=== PATIENT | female | born 1960 | race Caucasian/White ===

== ENCOUNTER 2018-02-20 11:29 | Observation (INO) | payer MEDICAID ==
[2018-02-20 12:44] LABS: ADD MAN DIFF? NO
[2018-02-20 12:48] LABS: BASOPHIL # 0.1 10^3/ul (0.0-0.1); BASOPHILS % 0.6 % (0.0-2.0); EOSINOPHILS # 0.4 10^3/ul (0.0-0.5); EOSINOPHILS % 3.5 % (0.0-7.0); HEMATOCRIT 41.4 % (37.0-47.0); HEMOGLOBIN 13.6 g/dl (12.0-16.0); LYMPHOCYTES # 3.2 10^3/ul (0.8-2.9); LYMPHOCYTES % 29.2 % (15.0-51.0); MEAN CORPUSCULAR HGB CONC 32.9 g/dl (32.0-37.0); MEAN CORPUSCULAR VOLUME 91.4 fl (82.0-101.0); MONOCYTE # 0.8 10^3/ul (0.3-0.9); MONOCYTES % 7.1 % (0.0-11.0); NEUTROPHIL # 6.5 10^3/ul (1.6-7.5); NEUTROPHILS % 59.3 % (39.0-77.0); PLATELET COUNT 322 10^3/UL (140-415); RED BLOOD COUNT 4.53 10^6/ul (4.20-5.40); RED CELL DISTRIBUTION WIDTH 13.1 % (11.5-14.5)
[2018-02-20] MEDS: ASPIRIN 81 MG TAB PO (12:53)
[2018-02-20] MEDS: NITROGLYCERIN 2% 1 GM OINT PKT TD (12:55)
[2018-02-20 13:09] LABS: ANION GAP 14 (8-16); BLOOD UREA NITROGEN 19 mg/dl (7-20); CALCIUM 9.4 mg/dl (8.4-10.2); CARBON DIOXIDE 25 mmol/L (21-31); CHLORIDE 108 mmol/L (97-110); CREATININE 0.54 mg/dl (0.44-1.00); GLUCOSE 124 mg/dl (70-220); POTASSIUM 4.1 mmol/L (3.5-5.1); SODIUM 143 mmol/L (135-144)
[2018-02-20 13:41] LABS: TROPONIN-I < 0.012 ng/ml (0.000-0.120)
[2018-02-20] MEDS: ACETAMINOPHEN 500 MG TAB PO (13:52)
[2018-02-20] MEDS ORDERED: ONDANSETRON 4 MG INJ IV (15:00)
[2018-02-20] MEDS ORDERED: ACETAMINOPHEN 325 MG TAB PO (15:00)
[2018-02-20] MEDS ORDERED: NACL 0.9% 3 ML SYG IV (15:30)
[2018-02-20] MEDS: HYDROCODONE/APAP (10/325) TAB PO (17:31)
[2018-02-20 20:04] LABS: CREATINE KINASE 51 IU/L (23-200)
[2018-02-20 20:17] LABS: CK INDEX 0.5; CK-MB 0.23 ng/ml (0.0-2.4)
[2018-02-20 20:20] LABS: TROPONIN-I < 0.012 ng/ml (0.000-0.120)
[2018-02-20] MEDS: ATORVASTATIN 40 MG TAB PO (20:22)
[2018-02-20] MEDS: ACETAMINOPHEN 325 MG TAB PO (21:54)
[2018-02-21] MEDS ORDERED: hydrALAzine 20 MG INJ IV (00:30)
[2018-02-21] MEDS: morphine 2 MG INJ IV (00:43)
[2018-02-21 01:11] LABS: CREATINE KINASE 47 IU/L (23-200)
[2018-02-21 01:22] LABS: CK INDEX 0.5; CK-MB 0.24 ng/ml (0.0-2.4)
[2018-02-21 01:26] LABS: TROPONIN-I < 0.012 ng/ml (0.000-0.120)
[2018-02-21] MEDS: PANTOPRAZOLE SODIUM 20 MG TABEC PO (05:12)
[2018-02-21 08:04] LABS: ADD MAN DIFF? NO
[2018-02-21 08:09] LABS: BASOPHIL # 0.1 10^3/ul (0.0-0.1); BASOPHILS % 0.6 % (0.0-2.0); EOSINOPHILS # 0.4 10^3/ul (0.0-0.5); EOSINOPHILS % 3.4 % (0.0-7.0); HEMATOCRIT 41.2 % (37.0-47.0); HEMOGLOBIN 13.4 g/dl (12.0-16.0); LYMPHOCYTES # 2.9 10^3/ul (0.8-2.9); LYMPHOCYTES % 26.8 % (15.0-51.0); MEAN CORPUSCULAR HEMOGLOBIN 29.3 pg (29.0-33.0); MEAN CORPUSCULAR HGB CONC 32.5 g/dl (32.0-37.0); MONOCYTE # 0.6 10^3/ul (0.3-0.9); MONOCYTES % 5.8 % (0.0-11.0); NEUTROPHIL # 6.9 10^3/ul (1.6-7.5); NEUTROPHILS % 63.1 % (39.0-77.0); PLATELET COUNT 314 10^3/UL (140-415); RED BLOOD COUNT 4.58 10^6/ul (4.20-5.40); RED CELL DISTRIBUTION WIDTH 12.7 % (11.5-14.5)
[2018-02-21 08:09] LABS: WHITE BLOOD COUNT 10.9 10^3/ul (4.8-10.8)
[2018-02-21 08:23] LABS: HEMOGLOBIN A1C 8.2 % (0-5.9)
[2018-02-21 08:32] LABS: ANION GAP 15 (8-16); BLOOD UREA NITROGEN 17 mg/dl (7-20); CALCIUM 9.2 mg/dl (8.4-10.2); CARBON DIOXIDE 26 mmol/L (21-31); CHLORIDE 104 mmol/L (97-110); CREATININE 0.52 mg/dl (0.44-1.00); GLUCOSE 146 mg/dl (70-220); MAGNESIUM 1.8 mg/dl (1.7-2.5); POTASSIUM 4.2 mmol/L (3.5-5.1); SODIUM 141 mmol/L (135-144)
[2018-02-21 08:37] LABS: HDL CHOLESTEROL 48 mg/dl (37-92); LDL CHOLESTEROL,CALCULATED 91 mg/dl; TRIGLYCERIDES 263 mg/dl (0-149)
[2018-02-21 08:37] LABS: CHOLESTEROL 192 mg/dl (100-200)
[2018-02-21] MEDS: BENAZEPRIL 20 MG TAB PO (09:11)
[2018-02-21] MEDS: ASPIRIN 81 MG TAB PO (09:11)
[2018-02-21] MEDS: ENOXAPARIN 40 MG/0.4 ML SYG SC (09:24)
[2018-02-21] MEDS ORDERED: GLUCOSE GEL 15 GRAM TUBE PO ×2 (14:00)
[2018-02-21] MEDS ORDERED: DEXTROSE 50% 50 ML SYRINGE IV ×2 (14:00)
[2018-02-21] MEDS ORDERED: GLUCOSE GEL 15 GRAM TUBE BUCCAL (14:00)
[2018-02-21] MEDS ORDERED: GLUCAGON 1 MG INJ IM (14:00)
[2018-02-21] MEDS: REGADENOSON 0.4 MG/5 ML SYG (15:36)
[2018-02-21] MEDS: INSULIN ASPART [NOVOLOG] 3 ML PEN SC ×2 (17:48→20:22)
[2018-02-21] MEDS ORDERED: morphine LIQ (10 MG/5 ML) CUP PO (18:00)
[2018-02-21] MEDS: ATORVASTATIN 40 MG TAB PO (20:21)
[2018-02-22] MEDS: ACCU-CHEK XX (02:00)
[2018-02-22] MEDS: PANTOPRAZOLE SODIUM 20 MG TABEC PO (05:49)
[2018-02-22] MEDS: INSULIN ASPART [NOVOLOG] 3 ML PEN SC ×2 (07:56→11:42)
[2018-02-22] MEDS: ASPIRIN 81 MG TAB PO (08:11)
[2018-02-22] MEDS: BENAZEPRIL 20 MG TAB PO (08:11)
[2018-02-22] MEDS: ENOXAPARIN 40 MG/0.4 ML SYG SC (09:26)
== END 2018-02-22 14:00 | disposition home or self-care (01) ==
LOC: TEL 21:03 → E/R 11:29 → TEL 14:35
DX: R07.9 Chest pain, unspecified (principal); E11.9 Type 2 diabetes mellitus without complications; E78.00 Pure hypercholesterolemia, unspecified; E66.9 Obesity, unspecified; Z68.30 Body mass index [BMI] 30.0-30.9, adult
CPT/HCPCS: 36415; 71045; 78452; 80048; 80061; 82550; 82553; 82962; 83036; 83735; 84484; 85025; 93005; 93017; 93306; 93971; 97161; 99285-25; G0378

== ENCOUNTER 2018-08-02 17:46 | Emergency (ER) | payer MEDICAID ==
[2018-08-02] MEDS: KETOROLAC 30 MG INJ IM (18:48)
== END 2018-08-02 20:11 | disposition home or self-care (01) ==
LOC: FTE 17:46
DX: M23.92 Unspecified internal derangement of left knee (principal); I10 Essential (primary) hypertension; E11.9 Type 2 diabetes mellitus without complications; Z79.82 Long term (current) use of aspirin; Z79.84 Long term (current) use of oral hypoglycemic drugs
CPT/HCPCS: 73562; 96372; 99284-25

== ENCOUNTER 2018-10-21 17:52 | Emergency (ER) | payer MEDICAID ==
[2018-10-21] MEDS: traMADol 50 MG TAB PO (21:25)
[2018-10-21] MEDS: KETOROLAC 30 MG INJ IM (21:25)
== END 2018-10-21 23:35 | disposition home or self-care (01) ==
LOC: FTE 17:52
DX: S89.92XA Unspecified injury of left lower leg, initial encounter (principal); I10 Essential (primary) hypertension; E11.9 Type 2 diabetes mellitus without complications; X58.XXXA Exposure to other specified factors, initial encounter; Y92.9 Unspecified place or not applicable; Z79.82 Long term (current) use of aspirin; Z79.84 Long term (current) use of oral hypoglycemic drugs
CPT/HCPCS: 73562; 96372; 99284-25

== ENCOUNTER 2019-01-22 12:24 | Emergency (ER) | payer MEDICAID ==
[2019-01-22] MEDS: predniSONE 20 MG TAB PO (13:49)
[2019-01-22] MEDS: FAMOTIDINE 20 MG TAB PO (13:49)
[2019-01-22] MEDS: DIPHENHYDRAMINE 50 MG INJ IM (13:50)
== END 2019-01-22 14:56 | disposition home or self-care (01) ==
LOC: FTE 12:24
DX: R21 Rash and other nonspecific skin eruption (principal); T38.3X5A Adverse effect of insulin and oral hypoglycemic [antidiabetic] drugs, initial encounter; E11.9 Type 2 diabetes mellitus without complications; I10 Essential (primary) hypertension; Z79.82 Long term (current) use of aspirin; Z79.84 Long term (current) use of oral hypoglycemic drugs
CPT/HCPCS: 96372; 99284-25

== ENCOUNTER 2019-04-15 15:49 | Emergency (ER) | payer MEDICAID | END 2019-04-15 17:40 | disposition home or self-care (01) | LOC: FTE 15:49 | DX: L56.8 Other specified acute skin changes due to ultraviolet radiation (principal); I10 Essential (primary) hypertension; E11.9 Type 2 diabetes mellitus without complications; X32.XXXA Exposure to sunlight, initial encounter; Z79.84 Long term (current) use of oral hypoglycemic drugs; Z79.82 Long term (current) use of aspirin | CPT/HCPCS: 99283; Z7502 ==

== ENCOUNTER 2019-05-18 16:40 | Emergency (ER) | payer MEDICAID ==
[2019-05-18] MEDS: DEXAMETHASONE 10 MG/ML 1 ML INJ IM (19:51)
[2019-05-18] MEDS: FAMOTIDINE 20 MG TAB PO (19:51)
[2019-05-18] MEDS: hydrOXYzine HCL 10 MG TAB PO (20:00)
== END 2019-05-18 20:52 | disposition home or self-care (01) ==
LOC: FTE 16:40
DX: L50.9 Urticaria, unspecified (principal); I10 Essential (primary) hypertension; E11.9 Type 2 diabetes mellitus without complications; Z79.82 Long term (current) use of aspirin; Z79.84 Long term (current) use of oral hypoglycemic drugs
CPT/HCPCS: 96372; 99284-25